=== PATIENT | male | born 1960 | race Caucasian/White ===

== ENCOUNTER 2016-10-07 13:00 | Emergency (ER) | payer BC ==
[~2016-10-07] VITALS: Ht 175.3 cm; Wt 80.0 kg
[2016-10-07 13:02] VITALS: BP 105/62; PULSE 115; RESP 23; TEMP 100.3; O2SAT 97
[2016-10-07 13:17] VITALS: BP_SYST 104; BP_SYST 105; BP_DIAS 57; BP_DIAS 62; O2SAT 97
--- NOTE | 2016-10-07 13:24 | PD ---
HPI Chief Complaint: Chest Pain Time Seen by Provider: 13:19 Travel History International Travel<30 days: No Contact w/Intl Traveler<30days: No Traveled to known affect area: No History of Present Illness HPI 56-year-old male that presents to the ED for evaluation of chest pain. Per patient today will he was at work he developed some lower abdominal discomfort. Per patient and lower abdominal pain was severe to the point that he had to sit down. Per patient he didn't think much of it at this Pain before like this and he took Tylenol for it and he seemed to improve. Per patient he thought he had to go to the bathroom as well as possible. I gas but he did essentially went on its own. 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 Per patient he fell against a pressure. Per patient she felt like he was diaphoretic and had the chills. He denies any cough or runny nose. He has never had anything like this before. He does tell me that he has a very strong family history of heart disease on both his parents in the age of 50 and most of his male cousins have had some sort of heart condition at his age. He denies any history of high cholesterol her blood pressure or diabetes on himself. Patient has a remote history of smoking. He states that he doesn't drink. He denies any recent travel. He states that about a week ago he had a cold which got better on its own with no really any problems. He states that the pain was 7 out of 10. Per patient the pain and it went away on its own. Per patient he felt short of breath. Ambulance was called and brought him here. He has no pain at this time. Per patient he did got aspirin by ambulance. He does not take aspirin himself. He denies any allergies. PFSH Past Medical History Gastrointestinal Disorders: Yes (ULCERS ) Triglycerides - High: Yes Social History Alcohol Use: No Tobacco Use: No Substance Use: No Allergies-Medications (Allergen,Severity, Reaction): Coded Allergies: No Known Allergies (Unverified , 10/07/16) Review of Systems General / Constitutional: Positive: Chills, No: Fever, Weight Gain, Weight Loss, Other Eyes: No: Diploplia, Blurred Vision, Photophobia, Drainage, Redness, Foreign Body Sensation, Pain, Tearing, Blind Spots, Visual changes, Blindness, Other HENT: No: Headaches, Vertigo, Lightheadedness, Sore Throat, Rhinitis, Rhinorrhea, Congestion, Nosebleed, Neck Stiffness, Neck Pain, Masses, Gingival Bleeding, Dental Difficulties, Ear Discharge, Earache, Other Cardiovascular: Positive: Chest Pain or Discomfort, Tachycardia, Diaphoresis, No: Palpitations, Irregular Rhythm, Syncope, Dyspnea on exertion, Varicosities, Edema, Cyanosis, Varicosities, Phlebitis, Claudication, Other Respiratory: Positive: Shortness of Breath, No: Cough, Wheezing, Sneezing, Orthopnea, Hemoptysis, Stridor, Night Sweats, Pleuritic Pain, Other Gastrointestinal: Positive: Abdominal Pain, No: Nausea, Vomiting, Diarrhea, Hematemesis, Hematochezia, Constipation, Changes in Bowel Habits, Indigestion, Dysphagia, Loss of Appetite, Other Genitourinary: No: Urgency, Frequency, Dysuria, Nocturia, Hematuria, Decreased Urinary Output, Oliguria, Hesitancy, Dribbling, Incontinence, Pelvic Pain, Flank Pain, Dyspareunia, Discharge, Dysmenorrhea, Menorrhagia, Metorrhagia, Vaginal Bleeding, Other Musculoskeletal: No: Myalgias, Arthralgias, Limited ROM, Weakness, Cramping, Edema, Pain, Atrophy, Other Skin: No Rash, No Itching, No Dryness, No Lumps, No Hives, No Change in Pigmentation, No Change in nails, No Alopecia, No Lesions, No Breast Lumps, No Breast Tenderness, No Breast Swelling, No Other Neurologic: No: Weakness, Dizziness, Syncope, Focal Abnormalities, Coordination Problem, Tremor, Ataxia, Headache, Change in Mentation, Slurred Speech, Paresthesia, Incontinence, Seizures, Sensory Disturbance, Other Psychiatric: No: Anxiety, Depression, Suicidal Ideations, Disorder of Thought, Mood Disorder, Substance Abuse, Homicidal Ideation, Other Endocrine: No: Heat Intolerance, Cold Intolerance, Polyuria, Polydipsia, Other Hematologic/Lymphatic: No: Easy Bruising, Lymph Node Enlargement, Other Physical Exam Narrative GENERAL: SKIN: Warm and dry. HEAD: Atraumatic. Normocephalic. EYES: Pupils equal and round. No scleral icterus. No injection or drainage. ENT: No nasal bleeding or discharge. Mucous membranes pink and moist. Tongue is midline. No uvula deviation. NECK: Trachea midline. No JVD. CARDIOVASCULAR: Regular rate and rhythm. No murmurs, S3, S4. Chest pain is not reproducible with touch. RESPIRATORY: No accessory muscle use. Clear to auscultation. Breath sounds equal bilaterally. GASTROINTESTINAL: Abdomen soft, non-tender, nondistended. Hepatic and splenic margins not palpable. MUSCULOSKELETAL: Extremities without clubbing, cyanosis, or edema. No obvious deformities. Full range of motion of the upper and lower extremities bilaterally. 2+ pulses bilaterally. NEUROLOGICAL: Awake and alert. No obvious cranial nerve deficits. Motor grossly within normal limits. Five out of 5 muscle strength in the arms and legs. Normal speech. PSYCHIATRIC: Appropriate mood and affect; insight and judgment normal. Data Data Last Documented VS Vital Signs Date Time Temp Pulse Resp B/P Pulse Ox O2 Delivery O2 Flow Rate FiO2 10/07/16 15:00 96 18 96/60 98 Room Air 10/07/16 13:02 100.3 Orders Electrocardiogram (10/07/16 13:14) Ckmb (Isoenzyme) Profile (10/07/16 13:14) Complete Blood Count With Diff (10/07/16 13:14) Magnesium (Mg) (10/07/16 13:14) Prothrombin Time / Inr (Pt) (10/07/16 13:14) Act Partial Throm Time (Ptt) (10/07/16 13:14) Troponin I (10/07/16 13:14) Chest, Single Ap (10/07/16 13:14) Ecg Monitoring (10/07/16 13:14) Bilateral Bp Monitoring (10/07/16 13:14) Iv Access Insert/Monitor (10/07/16 13:14) Oximetry (10/07/16 13:14) Oxygen Administration (10/07/16 13:14) Comprehensive Metabolic Panel (10/07/16 13:23) Lipase (10/07/16 13:23) Sodium Chlor 0.9% 1000 Ml Inj (Ns 1000 M (10/07/16 14:23) CKMB (10/07/16 13:55) CKMB% (10/07/16 13:55) Ct Abd/Pel W Iv Contrast(Rout) (10/07/16 14:39) Ct Pulmonary Angiogram (10/07/16 14:45) Iohexol 350 Inj (Omnipaque 350 Inj) (10/07/16 16:31) Labs Laboratory Tests Test 10/07/16 13:55 White Blood Count 10.2 TH/MM3 Red Blood Count 4.22 MIL/MM3 Hemoglobin 13.2 GM/DL Hematocrit 37.6 % Mean Corpuscular Volume 88.9 FL Mean Corpuscular Hemoglobin 31.2 PG Mean Corpuscular Hemoglobin 35.1 % Concent Red Cell Distribution Width 13.4 % Platelet Count 192 TH/MM3 Mean Platelet Volume 8.4 FL Neutrophils (%) (Auto) 91.1 % Lymphocytes (%) (Auto) 5.2 % Monocytes (%) (Auto) 3.1 % Eosinophils (%) (Auto) 0.1 % Basophils (%) (Auto) 0.5 % Neutrophils # (Auto) 9.3 TH/MM3 Lymphocytes # (Auto) 0.5 TH/MM3 Monocytes # (Auto) 0.3 TH/MM3 Eosinophils # (Auto) 0.0 TH/MM3 Basophils # (Auto) 0.1 TH/MM3 CBC Comment DIFF FINAL Differential Comment Prothrombin Time 11.4 SEC Prothromb Time International 1.0 RATIO Ratio Activated Partial 25.9 SEC Thromboplast Time Sodium Level 139 MEQ/L Potassium Level 3.8 MEQ/L Chloride Level 105 MEQ/L Carbon Dioxide Level 24.3 MEQ/L Anion Gap 10 MEQ/L Blood Urea Nitrogen 22 MG/DL Creatinine 1.25 MG/DL Estimat Glomerular Filtration 60 ML/MIN Rate Random Glucose 100 MG/DL Calcium Level 8.6 MG/DL Magnesium Level 1.8 MG/DL Total Bilirubin 0.6 MG/DL Aspartate Amino Transf 20 U/L (AST/SGOT) Alanine Aminotransferase 33 U/L (ALT/SGPT) Alkaline Phosphatase 61 U/L Total Creatine Kinase 262 U/L Creatine Kinase MB 1.0 NG/ML Troponin I LESS THAN 0.02 NG/ML Total Protein 7.1 GM/DL Albumin 4.1 GM/DL Lipase 116 U/L [facility] Medical Decision Making Medical Screen Exam Complete: Yes Emergency Medical Condition: Yes Medical Record Reviewed: Yes Interpretation(s) EKG shows sinus tachycardia but no sign of acute ischemia or arrhythmia read by me and attending. CBC & BMP Diagram 10/07/16 13:55 LFTs and lipase within normal limits. Coags within normal limits. Urine negative. Troponin and CK-MB negative. Last Impressions CT Angiography 10/07/16 1445 Signed Impressions: Service Date/Time: Friday, October 07, 2016 16:01 - CONCLUSION: 1. No pulmonary embolism. 2. Bilobed nodular density right apex measuring [address] chest in 3 months for stability. 3. No consolidation or pleural effusion. 4. Fatty liver. Werner Lamar MD Abdomen/Pelvis CT 10/07/16 1439 Signed Impressions: Service Date/Time: Friday, October 07, 2016 16:01 - CONCLUSION: 1. Diverticulitis descending/sigmoid colon. 2. 1.8 cm soft tissue nodule in the anterior right bladder. Cystoscopy recommended to exclude neoplasm. 3. Hepatic steatosis. 4. Renal cysts. 5. Fat-containing right lumbar hernia. Werner Lamar MD Chest X-Ray 10/07/16 1314 Signed Impressions: Service Date/Time: Friday, October 07, 2016 13:26 - CONCLUSION: No acute cardiopulmonary disease identified. Kiel Hall MD Differential Diagnosis Chest pain versus a typical chest pain versus abdominal pain versus viral syndrome versus ACS versus pancreatitis versus epigastric pain Narrative Course 56-year-old male that presents to the ED for evaluation of chest pain. Patient was properly examined and was found to have signs and symptoms consistent with appears to be chest pain with possible abdominal discomfort as well. Patient reports she does have significant history of family history of heart disease. He is high risk for ACS. Patient's symptoms appear to have diminished at this time. Patient was given aspirin in the back. No nitroglycerin given. At this time and do recommend labs and imaging and workup for heart as well as abdomen. Patient is agreeable for this. Labs and imaging were done. Labs and imaging were essentially unremarkable. Initial troponin was negative. Patient still symptomatic with some lower abdominal pain but no chest pain. He is still tachycardic and has a fever here. Concern for an infectious process versus PE. My attending agrees with plan. Imaging was ordered to check for PE as well as for abdominal etiology. CTs were negative for PE but were positive for diverticulitis as well as a nodule to the bladder as well as another one to the chest. Patient was given all the results. At this time I do not believe that his chest pain is cardiac in nature and the chest pain is likely related more to the abdominal disease. Patient has a fever and tachycardia secondary to the infection. Patient will be given prescriptions for Flagyl, Zofran, Cipro. Patient specifically requested no narcotics or pain medications. Patient was told to take OTC meds as needed. Patient was console and the need for follow- up with urology for the mass in the bladder and a repeat CT of the chest in 3 months for evaluation. He agrees and understands. Patient was given information for Dr. Conrad. Given note for work. See ED if worsening symptoms. Follow with PCP. Diagnosis Primary Impression: Diverticulitis large intestine Qualified Code: K57.32 - Diverticulitis of large intestine without perforation or abscess without bleeding Additional Impressions: Nodule of right lung Bladder mass Referrals: Rickey Conrad DO Patient Instructions: General Instructions Departure Forms: Tests/Procedures, Work Release Enter return to work date: Oct 09, 2016 Additional Instructions: Liquid diet. Take medication as prescribed. Follow with PCP. Follow with urologist . Get CT scan of your chest in 3 months to recheck for the chest nodule. See ED worsening symptoms as Med/Other Pt SpecificInfo: Prescription(s) given Scripts Ondansetron (Zofran)4 Mg Tab4 Mg PO Q6HR PRN (NAUSEA OR VOMITING) #14 TAB Ref 0 Prov:Stephen Wilde MD 10/07/16 Metronidazole (Flagyl)500 Mg [id number] Mg PO QID 10 Days Ref 0 Prov:Stephen Wilde MD 10/07/16 Ciprofloxacin (Cipro)500 Mg [id number] Mg PO BID 10 Days Prov:Stephen Wilde MD 10/07/16 Disposition: 01 DISCHARGE HOME Condition: Stable Augusto Whitman Oct 07, 2016 13:24
[2016-10-07 14:14] LABS: AUTOMATED NEUTROPHIL # 9.3 TH/MM3 (1.8-7.7); BASOPHIL # 0.1 TH/MM3 (0-0.2); BASOPHIL % 0.5 % (0.0-2.0); EOSINOPHIL % 0.1 % (0.0-4.0); HEMATOCRIT 37.6 % (39.0-51.0); HEMO FLAGS DIFF FINAL; LYMPH % 5.2 % (9.0-44.0); LYMPHOCYTE # 0.5 TH/MM3 (1.0-4.8); MEAN CELL VOLUME 88.9 FL (80.0-100.0); MEAN CORPUSCULAR HEMOGLOBIN 31.2 PG (27.0-34.0); MEAN CORPUSCULAR HGB CONC 35.1 % (32.0-36.0); MONO % 3.1 % (0.0-8.0); NEUT % 91.1 % (16.0-70.0); PLATELET COUNT 192 TH/MM3 (150-450); RED BLOOD COUNT 4.22 MIL/MM3 (4.50-5.90); RED CELL DISTRIBUTION WIDTH 13.4 % (11.6-17.2); WHITE BLOOD COUNT 10.2 TH/MM3 (4.0-11.0)
[2016-10-07 14:23] LABS: APTT (PATIENT) 25.9 SEC (24.3-30.1); PROTHROMBIN TIME - PATIENT 11.4 SEC (9.8-11.6)
[2016-10-07] MEDS ORDERED: SODIUM CHLOR 0.9% 1000 ML INJ 1,000 ML IV SCH (14:23)
[2016-10-07 14:35] LABS: ALT (GPT) 33 U/L (12-78); ANION GAP 10 MEQ/L (5-15); AST (GOT) 20 U/L (15-37); BICARBONATE 24.3 MEQ/L (21.0-32.0); BLOOD UREA NITROGEN 22 MG/DL (7-18); CHLORIDE 105 MEQ/L (98-107); GLOMERULAR FILTRATION RATE 60 ML/MIN (>89); MAGNESIUM 1.8 MG/DL (1.5-2.5); POTASSIUM 3.8 MEQ/L (3.5-5.1); SODIUM (NA) 139 MEQ/L (136-145)
[2016-10-07 14:38] LABS: ALKALINE PHOSPHATASE 61 U/L (45-117); CREATINE KINASE 262 U/L (39-308); TOTAL BILIRUBIN ADULT 0.6 MG/DL (0.2-1.0)
--- NOTE | 2016-10-07 14:43 | RADRPT ---
EXAM DATE/TIME: 10/07/2016 13:26 [facility] COMPARISON: No previous studies available for comparison. INDICATIONS : Chest Pain, Short of Breath. MEDICAL HISTORY : None. SURGICAL HISTORY : None. ENCOUNTER: Initial ACUITY: 1 day PAIN SCORE: 9/10 LOCATION: Bilateral chest FINDINGS: Single AP view of the chest. The lungs are clear. Cardiomediastinal silhouette within normal limits. No evidence of pleural effusion or pneumothorax. CONCLUSION: No acute cardiopulmonary disease identified. Kiel Hall MD on October 07, 2016 at 14:41 Board Certified Radiologist. This report was verified electronically.
[2016-10-07 15:00] VITALS: BP 96/60; PULSE 96; RESP 18; O2SAT 98
--- NOTE | 2016-10-07 16:29 | EKG ---
Date Performed: 10/07/2016 Time Performed: 13:08:05 PTAGE: 56 years EKG: SINUS TACHYCARDIA POSSIBLE LEFT ATRIAL ENLARGEMENT ABNORMAL RHYTHM ECG NO PREVIOUS TRACING DOCTOR: Edwin Crespo Interpretating Date/Time 10/07/2016 16:28:59
[2016-10-07] MEDS ORDERED: IOHEXOL 350 MG/ML 10 ML VIAL (for RAD DIAG) IV ONE (16:31)
--- NOTE | 2016-10-07 16:31 | RADRPT ---
EXAM DATE/TIME: 10/07/2016 16:01 [facility] COMPARISON: No previous studies available for comparison. INDICATIONS : Short of breath. IV CONTRAST: 83 cc Omnipaque 350 (iohexol) IV RADIATION DOSE: 23.38 CTDIvol (mGy) MEDICAL HISTORY : Ulcers. SURGICAL HISTORY : None. ENCOUNTER: Initial ACUITY: 1 day PAIN SCALE: 5/10 LOCATION: chest TECHNIQUE: Volumetric scanning of the chest was performed using a pulmonary embolism protocol MIP images were re constructed. Using automated exposure control and adjustment of the mA and/or kV according to patien t size, radiation dose was kept as low as reasonably achievable to obtain optimal diagnostic quality images. FINDINGS: PULMONARY ARTERIES: No filling defects are seen in the pulmonary arteries through the segmental level. LUNGS: There is no consolidation or pneumothorax . No concerning pulmonary nodule is visualized. Bilobed 6 mm nodular density right apex. PLEURAE: There is no pleural thickening or pleural effusion. MEDIASTINUM: There is good visualization of the great vessels of the middle mediastinum. No evidence of mediastin al or hilar adenopathy/mass. MUSCULOSKELETAL: Within normal limits for patient age. MISCELLANEOUS: The visualized upper abdominal organs demonstrate no acute abnormality. CONCLUSION: 1. No pulmonary embolism. 2. Bilobed nodular density right apex measuring [address] chest in 3 months for sta bility. 3. No consolidation or pleural effusion. 4. Fatty liver. Werner Lamar MD on October 07, 2016 at 16:27 Board Certified Radiologist. This report was verified electronically.
--- NOTE | 2016-10-07 16:34 | RADRPT ---
EXAM DATE/TIME: 10/07/2016 16:01 [facility] COMPARISON: No previous studies available for comparison. INDICATIONS : Abdomen pain. IV CONTRAST: 83 cc Omnipaque 350 (iohexol) IV ORAL CONTRAST: No oral contrast ingested. RADIATION DOSE: 7.83 CTDIvol (mGy) MEDICAL HISTORY : Ulcers. SURGICAL HISTORY : None. ENCOUNTER: Initial ACUITY: 1 day PAIN SCALE: 4/10 LOCATION: abdomen TECHNIQUE: Volumetric scanning of the abdomen and pelvis was performed. Using automated exposure control and ad justment of the mA and/or kV according to patient size, radiation dose was kept as low as reasonably achievable to obtain optimal diagnostic quality images. FINDINGS: LOWER LUNGS: The visualized lower lungs are clear. LIVER: Decreased density without lesion. There is no dilation of the biliary tree. No calcified gallstones . SPLEEN: Normal size without lesion. PANCREAS: Within normal limits. KIDNEYS: Normal in size and shape. There is no mass, stone or hydronephrosis. Small bilateral renal cysts. ADRENAL GLANDS: Within normal limits. VASCULAR: There is no aortic aneurysm. BOWEL/MESENTERY: Diverticulitis distal descending/sigmoid colon. There is no free intraperitoneal air or fluid. ABDOMINAL WALL: Within normal limits. RETROPERITONEUM: There is no lymphadenopathy. BLADDER: There is a 1.8 centimeter soft tissue density in the anterior right urinary bladder there is a small diverticulum. REPRODUCTIVE: Within normal limits. INGUINAL: There is no lymphadenopathy or hernia on the left. Fat containing right inguinal hernia. MUSCULOSKELETAL: Within normal limits for patient age. CONCLUSION: 1. Diverticulitis descending/sigmoid colon. 2. 1.8 cm soft tissue nodule in the anterior right bladder. Cystoscopy recommended to exclude neoplas m. 3. Hepatic steatosis. 4. Renal cysts. 5. Fat-containing right lumbar hernia. Werner Lamar MD on October 07, 2016 at 16:30 Board Certified Radiologist. This report was verified electronically.
[2016-10-07] MEDS ORDERED: METR-1 PO (16:40)
[2016-10-07] MEDS ORDERED: ZOFR4TAB PO (16:40)
[2016-10-07] MEDS ORDERED: CIPR-9 PO (16:40)
[2016-10-07 17:17] VITALS: BP 104/65
== END 2016-10-07 17:24 | disposition home or self-care (01) ==
LOC: NEPE 13:00
DX: K57.32 Diverticulitis of large intestine without perforation or abscess without bleeding (principal); R91.1 Solitary pulmonary nodule; N32.89 Other specified disorders of bladder; R07.9 Chest pain, unspecified; R00.0 Tachycardia, unspecified; R50.9 Fever, unspecified; R06.02 Shortness of breath; R94.31 Abnormal electrocardiogram [ECG] [EKG]; E78.1 Pure hyperglyceridemia; Z87.19 Personal history of other diseases of the digestive system; Z82.49 Family history of ischemic heart disease and other diseases of the circulatory system
CPT/HCPCS: 71010; 71275; 74177; 80053; 82550; 82552; 83690; 83735; 84484; 85025; 85610; 85730; 93005; 99285; J7030; Q9967